=== PATIENT | female | born 1980 | race Caucasian/White ===

== ENCOUNTER 2018-04-19 14:31 | Emergency (ER) | payer SELFPAY ==
[~2018-04-19] VITALS: Ht 160 cm; Wt 58.0 kg
[2018-04-19 14:35] VITALS: BP 127/76; PULSE 80; RESP 18; Ht 160 cm; Wt 58.0 kg
--- NOTE | 2018-04-19 15:09 | ERD ---
ER Documentation Chief Complaint Chief Complaint pt bib family sent by clinic due to unable to hear FHT, approx 6 wks preg HPI 37-year-old female at 12 weeks EGA by LMP 01/25/18, presents to the emergency department, referred by [facility] for ultrasound. The patient denies vaginal bleeding, no abdominal pain, no fever or chills. ROS All systems reviewed and are negative except as per history of present illness. Allergies Allergies: Coded Allergies: No Known Allergy (Unverified , 04/19/18) PMhx/Soc Medical and Surgical Hx: pt denies Medical Hx, pt denies Surgical Hx Hx Alcohol Use: No Hx Substance Use: No Hx Tobacco Use: No Smoking Status: Never smoker Physical Exam Vitals Vital Signs Date Temp Pulse Resp B/P (MAP) Pulse Ox O2 O2 Flow FiO2 Time Delivery Rate 04/19/18 79.0 80 18 127/76 98 14:35 (93) Physical Exam Const: No acute distress Head: Atraumatic Eyes: Normal Conjunctiva ENT: Normal External Ears, Nose and Mouth. Neck: Full range of motion. No meningismus. Resp: Clear to auscultation bilaterally Cardio: Regular rate and rhythm, no murmurs Abd: Soft, non tender, non distended. Normal bowel sounds Skin: No petechiae or rashes Back: No midline or flank tenderness Ext: No cyanosis, or edema Neur: Awake and alert Psych: Normal Mood and Affect Results 24 hrs Laboratory Tests Test 04/19/18 15:13 04/19/18 15:14 04/19/18 15:17 Bedside Urine pH (LAB) 6.5 Bedside Urine Protein (LAB) Negative Bedside Urine Glucose (UA) Negative Bedside Urine Ketones (LAB) Trace Bedside Urine Blood Negative Bedside Urine Nitrite (LAB) Negative Bedside Urine Negative Leukocyte Esterase (L POC Beta HCG, Qualitative POSITIVE Beta HCG, Quantitative 22529.0 mIU/ml Patient: POLINA KOCH : 1980 Age: 37 Sex: F MR #: [id number] DOS: 04/19/18 1504 Ordering MD: CIRO OLVERA MD Location: FTE Room/Bed: PROCEDURE: US OB. CLINICAL INDICATION: female with absent cardiac activity. TECHNIQUE: Transabdominal and transvaginal sonographic evaluation of the u terus was performed. COMPARISON: None. FINDINGS: There is a single living intrauterine gestation. Eagle rump length measures 53.1 mm. Estimated gestational age based on this examination is 12 weeks +/- 1 week and 1 day. Real time examination shows cardiac activity. heart rate is 176 beats per minute. Estimated date of confinement based on this examination is 11/01/2018. IMPRESSION: 1. Single living intrauterine gestation with estimated gestational age of 12 weeks +/- 1 week and 1 day. Procedures/MDM Vital signs stable, Physical exam unremarkable. Differential diagnosis include but not limited to: UTI, threatening , incomplete versus complete , ectopic , physiologic implantation bleeding, molar . Physical examination and clinical presentation most likely consistent with viable at 12 weeks. During the ED course the patient remained hemodynamically stable and asymptomatic. Results and clinical impression discussed with patient who agrees with management. The patient is stable to be treated outpatient and will be discharged home with close monitoring and follow-up in 2 days with her primary physician. The patient was instructed regarding the outcomes and the potential co mplications like severe bleeding and . If the patient presents severe bleeding or pain, she was instructed to return to the hospital immediately. Disclaimer: Inadvertent spelling and grammatical errors are likely due to EHR/dictation software use and do not reflect on the overall quality of patient care. Also, please note that the electronic time recorded on this note does not necessarily reflect the actual time of the patient encounter. Departure Diagnosis: Primary Impression: with 12 completed weeks gestation Condition: Stable Additional Instructions: Muchas twin por [facility] para laureano servicio. Esperamos que en laureano visita a la macey de emergencia laureano problema medico haya sido solucionado y que se sienta mucho mejor. Para estar seguros que laureano mejoria sigue en proceso, le pedimos el favor de hacer lazara gal de seguimiento medico con laureano doctor primario en los proximos 2-4 acuna. Lleve con usted estos documentos y las medicinas recetadas. Si katelynn sintomas empeoran, NO SE ESPERE, por favor regrese a macey de emergencia INMEDIATAMENTE. En elva que usted no tenga un mdico de atencin primaria: Llame al mdico o clnica comunitaria de referencia que aparece abajo emerson las horas de consultorio para hacer lazara gal para que le vean. CLINICAS: [facility] [phone] [facility] [phone] [facility] [phone] [address] [place] [phone] [facility] [facility]. [place] [id number] [phone] [facility] [phone] CIRO FRANCO MD Apr 19, 2018 15:09
== END 2018-04-19 17:15 | disposition home or self-care (01) ==
LOC: FTE 14:31
DX: O36.8311 Maternal care for abnormalities of the fetal heart rate or rhythm, first trimester, fetus 1 (principal); Z3A.12 12 weeks gestation of pregnancy
CPT/HCPCS: 76801; 81003; 81025; 84702

== ENCOUNTER 2018-10-23 17:30 | Inpatient (IN) | payer MEDICAID ==
[~2018-10-23] VITALS: Ht 167.6 cm; Wt 60.0 kg
[2018-10-23] MEDS ORDERED: OXYTOCIN 30 UNITS/LR 500 ML IV SCH ×3 (18:00→22:30)
[2018-10-23] MEDS ORDERED: MISOPROSTOL 200 MCG TAB PR PRN ×2 (18:00→22:30)
[2018-10-23] MEDS ORDERED: METHYLERGONOVINE 0.2 MG INJ IM PRN ×2 (18:00→22:30)
[2018-10-23] MEDS ORDERED: LIDOCAINE 1% (MPF) 30 ML INJ INJ PRN (18:00)
[2018-10-23] MEDS ORDERED: OXYTOCIN 30 UNITS/LR 500 ML IV PRN ×2 (18:00→22:30)
[2018-10-23] MEDS ORDERED: CARBOPROST 250 MCG INJ IM PRN ×2 (18:00→22:30)
[2018-10-23 18:12] VITALS: Ht 167.6 cm; Wt 60.0 kg
--- NOTE | 2018-10-23 18:29 | HP ---
Date/Time of Note Date/Time of Note DATE: 10/23/18 TIME: 18:22 OB - History Hx of Present Free Text/Dictation 38 years old -0-0-2 with single intrauterine at 38 weeks and 5 days with a YONATAN of 11/01/2018 complaining of uterine contractions. She states good movement. She denies nausea, vomiting, shortness of breath, chest pain, headache, visual changes, vaginal bleeding or LOF. Chief Complaint: Uterine contractions Estimated Due Date: Nov 01, 2018 : 3 Para: 2 Spontaneous : 0 Therapeutic : 0 Care: Good Care Ultrasounds: Normal mid trimester US Obstetrical Complications: None Medical Complications: None Past Family/Social History * Past Medical, Surgical, Family and Obstetric Histories reviewed which is unremarkable OB Admission Exam Vital Signs Vital Signs Blood pressure 120/67,, pulse rate 68/minutes, respiratory rate 16/minutes, temperature 98.6 Physical Exam HEENT: WNL Heart: Rhythm Normal Lungs: Clear Abdomen: WNL Extremities: Normal Cervical Dilatation: 8cm Effacement: 100% Station: 0 Membranes: Intact Heart Rate: 140's Accelerations: Accelerations Present Decelerations: No Decelerations Varibility: Moderate Contractions on Admission: < 5 Minutes Apart Intensity: Firm Last 72 hours Lab Results CBC & BMP 10/23/18 17:15 OB Assessment/Plan Other plan: 38 years old -0-0-2 with single intrauterine at 38 weeks and 5 days in active labor. -FHR: No sign of metabolic acidosis- Category I -Continuous EFM, toco -CBC, blood type and screen -Analgesia options with R/B/A discussed in detail with patient -Epidural per patient request -Please see the orders -Obtain records Admission, procedures, expectations, risks and possible complications have been discussed in detail with the patient. Risk of vaginal delivery including but not limited to bleeding, infection, cervical laceration, placental retention, injury to fetus, blood transfusion, blood transfusion related infection, risk of anesthesia, adhesion, cervical laceration, episiotomy/laceration, possible delivery with risk of bleeding, infection, injury to other organs (bowel, bladder, ureter, vessels, nerves), injury to fetus, blood transfusion, blood transfusion related infection, risk of anesthesia, scar and hernia formation, needs for future , removal of uterus or any other indicated surgery discussed with the patient. She expressed understanding and repeats the risks. All of her questions were answered. She signed the informed consent. PHYSICIAN'S VERIFICATION OF INFORMED CONSENT The patient was counseled regarding the procedure, its indications, risks, potential complications and alternatives and any questions were answered. Consent was obtained. PLANNED PROCEDURE/TREATMENT: Vaginal delivery, episiotomy, repair of laceration possible delivery DAISY GONSALEZ Oct 23, 2018 18:29
--- NOTE | 2018-10-23 18:32 | LDN ---
Date/Time of Note Date/Time of Note DATE: 10/23/18 TIME: 18:29 Delivery Summary 38 years old -0-0-2 with single intrauterine at 38 weeks and 5 days delivered a viable male over intact perineum. There was a tight nuchal cord x1 which clamped and cut. Baby given to the nurse. Placenta delivered spontaneously and intact with three-vessel cord. There was no laceration. Patient tolerated procedure well. Time of delivery 17:33 Weight 3105 g Height 19 inches 8 at 1 minutes and 9 at 5 minutes EBL 150 mL Weeks of Gestation 38 weeks and 5 days Placenta Delivered: Spontaneously Meconium: none Episiotomy: No Anesthesia type: None Estimated blood loss: 150 Sponge & Needle done & correct: Yes All needle counts correct: Yes Any foreign bodies felt in the: No Delivery Information Sex Sex: male Apgars 1 Minute: 8 5 Minute: 9 10 Minute: 10 Suctioning Nose & mouth suctioned at jeffery: Yes Umbilical Cord Umbilical cord with: 3 Vessels Cord presentations: nuchal cord Nuchal cord present X: 1 Cord Blood was obtained: Yes Mother & Baby Disposition Disposition Mom & Baby to Maternity; Good: Yes DAISY GONSALEZ Oct 23, 2018 18:32
[2018-10-23 21:20] VITALS: BP 114/72; PULSE 73; RESP 18
[2018-10-23] MEDS ORDERED: SENNA/DOCUSATE NA (8.6MG/50MG) TAB PO PRN (22:30)
[2018-10-23] MEDS ORDERED: WITCH HAZEL/GLYCERIN PAD PR PRN (22:30)
[2018-10-23] MEDS ORDERED: BENZOCAINE 20% 56 ML SPRAY TOP PRN (22:30)
[2018-10-23] MEDS ORDERED: DIBUCAINE 1% 30 GM OINT TOP PRN (22:30)
[2018-10-23] MEDS ORDERED: NACL 0.9% 3 ML SYG IV SCH (22:30)
[2018-10-23] MEDS ORDERED: LANOLIN HPA 1 PKT TOP PRN (22:30)
[2018-10-23] MEDS: IBUPROFEN 600 MG TAB PO SCH (23:38)
[2018-10-24 01:14] VITALS: BP 100/62; PULSE 66; RESP 17
[2018-10-24 03:47] VITALS: BP 119/66; PULSE 67; RESP 14
[2018-10-24] MEDS: IBUPROFEN 600 MG TAB PO SCH ×3 (05:46→18:00)
[2018-10-24 08:00] VITALS: BP 98/56; PULSE 64; RESP 17
[2018-10-24 15:29] VITALS: BP 95/58; PULSE 69; RESP 18
[2018-10-24 20:00] VITALS: BP 100/54; PULSE 100; RESP 18
--- NOTE | 2018-10-24 21:50 | DELSUM ---
Delivery Summary A-C Datetime Report Generated by CPN: 10/24/2018 21:49 DELIVERY PERSONNEL Beveling And Edging Machine Operator: Duvo, Leti MATERNAL INFORMATION Delivery Anesthesia: None Medications in Delivery: pitocin Delivery QBL (ml): 90 Placenta Cultured: No Maternal Complications: None LABOR SUMMARY EDC: 11/01/2018 00:00 No. Babies in Womb: 1 Attempted: No Labor Anesthesia: None LABOR INFORMATION Reason for Induction: Not Applicable Onset of Labor: 10/23/2018 15:15 Complete Dilatation: 10/23/2018 17:32 Oxytocin: N/A Group B Beta Strep: Not Done Antibiotics # of Doses: 0 Steroids Given: None Reason Steroids Not Administered: Not Applicable MEMBRANES Membranes Rupture Method: Spontaneous Rupture of Membranes: 10/23/2018 17:32 Length of Rupture (hr): 0.02 Amniotic Fluid Color: Clear Amniotic Fluid Amount: Small Amniotic Fluid Odor: None STAGES OF LABOR Stage 1 hr: 2 Stage 1 min: 17 Stage 2 hr: 0 Stage 2 min: 1 Stage 3 hr: 0 Stage 3 min: 2 Total Time in Labor hr: 2 Total Time in Labor min: 20 VAGINAL DELIVERY Episiotomy: None Laceration Extension: N/A Laceration Type: None Laceration Repair: No Initial Vag Sponge Count: 10 Final Vag Sponge Count: 10 Initial Vag Sharps Count: 1 Final Vag Sharps Count: 1 Sponge Count Correct: Yes Sharps Count Correct: Yes BABY A INFORMATION Delivery Date/Time: 10/23/2018 17:33 Method of Delivery: Vaginal Born in Route : No : N/A Forceps: N/A Vacuum Extraction: N/A Shoulder Dystocia : N/A SHOULDER DYSTOCIA BABY A Infant Delivery Date/Time: 10/23/2018 17:33 PRESENTATION/POSITION BABY A Presentation: Cephalic Cephalic Presentation: Vertex Vertex Position: Left Occipital Anterior Breech Presentation: N/A PLACENTA INFORMATION BABY A Placenta Delivery Time : 10/23/2018 17:35 Placenta Method of Delivery: Spontaneous Placenta Status: Delivered SCORES BABY A Heart Rate 1 min: >100 bpm Resp Effort 1 min: Good Cry Reflex Irritability 1 min: Cough/Sneeze/Pulls Away Muscle Tone 1 min: Active Motion Color 1 min: Blue/Pale Resuscitation Effort 1 min: Tactile Stimulation SCORE 1 MIN: 8 Heart Rate 5 min: >100 bpm Resp Effort 5 min: Good Cry Reflex Irritability 5 min: Cough/Sneeze/Pulls Away Muscle Tone 5 min: Active Motion Color 5 min: Body Mar[place], Extremit Blue Resuscitation Effort 5 min: Tactile Stimulation SCORE 5 MIN: 9 INFORMATION BABY A Gestational Age at Delivery: 38.5 Gestational Status: Early Term- 37- 38.6 Weeks Infant Outcome : Liveborn, with signs of life Infant Condition : Stable Sex: Male IDENTIFICATION/MEDS BABY A ID Band Number: [id number] ID Band Location: Right Leg; Left Arm Sensor Applied: Yes Sensor Number: [id number] Sensor Location : Cord Clamp Vitamin K Given : Not Given Erythromycin Given: Not Given WEIGHT/LENGTH BABY A Infant Birthweight (gm): 3105 Weight (lb): 6 Infant Weight (oz): 14 Infant Length (in): 19.00 Length (cm): 48.26 CORD INFORMATION BABY A No. Cord Vessels: 3 Nuchal Cord : Around Neck x1, Tight Cord Blood Taken: Yes Suction: Mouth; Nose ASSESSMENT BABY A Complications: None Physical Findings at Delivery: Within Normal Limits Respirations: Appears Normal Plant Production Worker/ALS Called : No Infant Care By: Radha whatley Transferred To: Remains with Mother
--- NOTE | 2018-10-24 23:46 | PN ---
Date/Time of Note Date/Time of Note DATE: 10/24/18 TIME: 23:44 OB Subjective Subjective Subjective Patient denies any complaints. Vaginal bleeding decreased. Ambulating. Urin ated, breast-feeding, OB Objective Objective Objective General appearance: Alert and oriented x4 does not appear to be in any acute distress Abdomen: Soft, fundus center below the umbilicus nontender Extremities: No calf tenderness, no click no edema no cord palpable Breast: No evidence of mastitis or fissure VS - Last 72 Hours, by Label Date Temp Pulse Resp B/P (MAP) Pulse Ox O2 O2 Flow FiO2 Time Delivery Rate 10/24/18 98.3 69 18 95/58 (70) Room Air 15:29 10/24/18 98.7 64 17 98/56 (70) Room Air 08:00 10/24/18 98.5 67 14 119/66 Room Air 03:47 (83) 10/24/18 97.6 66 17 100/62 Room Air 01:14 (75) 10/23/18 98.6 73 18 114/72 Room Air 21:20 (86) Laboratory Tests Test 10/24/18 04:37 White Blood Count 14.3 H Red Blood Count 4.30 Hemoglobin 10.3 L Hematocrit 32.4 L Mean Corpuscular Volume 75.3 L Mean Corpuscular Hemoglobin 24.0 L Mean Corpuscular Hemoglobin Concent 31.8 L Red Cell Distribution Width 15.2 H Platelet Count 262 Mean Platelet Volume 9.6 Immature Granulocytes % 0.400 Neutrophils % 80.7 H Lymphocytes % 11.8 L Monocytes % 6.5 Eosinophils % 0.4 Basophils % 0.2 Nucleated Red Blood Cells % 0.0 Immature Granulocytes # 0.060 H Neutrophils # 11.5 H Lymphocytes # 1.7 Monocytes # 0.9 Eosinophils # 0.1 Basophils # 0.0 Nucleated Red Blood Cells # 0.0 OB Assessment/Plan Other Assessment: Status post day #1 Anemia, , asymptomatic Routine care Iron once a day and vitamin VICKIE EM MD Oct 24, 2018 23:46
[2018-10-25] MEDS: IBUPROFEN 600 MG TAB PO SCH ×3 (00:48→12:00)
[2018-10-25 04:00] VITALS: BP 101/58; PULSE 76; RESP 18
[2018-10-25 08:45] VITALS: BP 103/56; PULSE 67; RESP 16
[2018-10-25 17:51] VITALS: BP 112/57; PULSE 66; RESP 16
--- NOTE | 2018-10-25 18:07 | PD.PPDC ---
DERMATOPATHOLOGIST Discharge Instruction Condition [id number] Patient Condition: [id number] Good Activity/Restrictions [id number] Restrictions: [id number] No Exercising No Lifting No Driving Minimize Walking No Sexual Activity Nothing in the Vagina No [place] No Tampons, douche Follow-up Follow-up with Physician: 6, Week/Weeks Provider Information: Viktor Colón MD Return to clinic for [id number] SR. STRATEGIC SOURCING MANAGER Instructions: [id number] Fever greater than 101 Chills Worsening abdominal pain Excessive Vaginal Bleeding More than 2 pads per hour Unable to tolerate diet [id number] OB Instructions: Tipor7q Breast Tenderness Depression Blurried Vision Headache VICKIE EM MD Oct 25, 2018 18:07
--- NOTE | 2018-10-25 18:10 | QN ---
Documentation Comment Breast-feeding. Reports decreased vaginal bleeding. Denies any headache, blurred vision, epigastric pain or right upper quadrant pain. Reports her breast milk is not adequate and has been using supplements. Physical examination: General appears alert and oriented x4 does not appear to be in any acute distress Abdomen: Soft, fundus palpable 3 cm below the umbilicus and nontender and firm Breast: No evidence of mastitis or fissure, breast fullness noted Extremities: No calf tenderness, no click no edema no cord palpable Coagulation Test 10/23/18 17:15 INR International Normalized Ratio 0.89 Prothrombin Time 12.2 Sec (11.9-14.9) Assessment Status post day #2 Doing well Mild leukocytosis, reactive, asymptomatic no evidence of infection or endometritis Patient is stable for discharge. She meet the criteria for discharge. Discussed regarding follow-up in 6 weeks with primary OB office or sooner as needed Discharge instruction precaution provided by RN and by myself VICKIE EM MD Oct 25, 2018 18:10
--- NOTE | 2018-10-25 18:11 | DS ---
Date/Time of Note Date/Time of Note DATE: 10/25/18 TIME: 18:10 Discharge Summary Admission/Discharge Info Admit Date/Time Oct 23, 2018 at 17:30 Discharge Date/Time 10/25/2018 Discharge Diagnosis Status post Mild leukocytosis, reactive, asymptomatic Patient Condition: Good Consults None Procedures Hx of Present Illness 38 years old -0-0-2 with single intrauterine at 38 weeks and 5 days with a YONATAN of 11/01/2018 presented in labor with complaint of uterine contractions. She was noted to be in active labor. She progressed normally and delivered a viable male over intact peritoneum. Tight nuchal cord x1 noted. Placenta delivered spontaneously intact three-vessel. No laceration. Baby 8 and 9. EBL 150 cc. Postoperatively she did well. She only had mild leukocytosis and likely was reactive secondary to labor. She was asymptomatic. No evidence of endometritis or source of infection noted. She was advised To have a follow-up in 6 weeks or sooner with primary OB office. Precaution was given to be seen In the emergency if she has any fever or chills abdominal pain tenderness breast tenderness breast pain or any other concerns including headache, blurred vision, epigastric pain right upper quadrant pain, nausea vomiting diarrhea. Hospital Course Uncomplicated Primary Care Provider Care Physician No Primary Time spent on discharge: > 30 minutes VICKIE EM MD Oct 25, 2018 18:11
--- NOTE | 2018-10-28 12:05 | NSTRPT ---
NST Information Datetime Report Generated by CPN: 10/28/2018 12:05 Datetime: 10/22/2018 14:38 NST Information EGA: 38.4 Test Number: 3 Time on Monitor: 10/22/2018 15:05 Time off Monitor: 10/22/2018 15:33 NST Duration (Min): 28 Reason for NST: Other Reason for NST Other: Advanced Maternal Age Test and Monitor Explained: Monitor Explained; Test Explained; Verbalized Understanding; Breastfeed ing Info Given Pulse: 93 Resp: 18 SBP: 94 DBP: 59 Test Evaluation NST Interventions: Acoustic Stimulation NST Interventions Other: 1513 FAS followed by accel to 160 Patient States Movement: Present Contraction Frequency: x1/60/mild/pain level 0 FHR Baseline : 145 Variability: Moderate 6-25bpm Accelerations: 15X15 Decelerations: None FHR Category: Category I NST Results: Reactive Comments: To u/s AV 13.9 CM CEPHALIC Electronically Signed By E-Signature: with User ID: [id number] Datetime: 10/18/2018 14:43 NST Information EGA: 38.0 Test Number: 2 Time on Monitor: 10/18/2018 15:23 Time off Monitor: 10/18/2018 15:48 NST Duration (Min): 25 Reason for NST: Other Reason for NST Other: Advanced Maternal Age Test and Monitor Explained: Monitor Explained; Test Explained; Verbalized Understanding Pulse: 83 Resp: 18 SBP: 101 DBP: 66 Test Evaluation NST Interventions: None Patient States Movement: Present Contraction Frequency: NONE FHR Baseline : 135 Variability: Moderate 6-25bpm Accelerations: 15X15 Decelerations: None FHR Category: Category I NST Results: Reactive Comments: To u/s AV 15.1 CM CEPHALIC Electronically Signed By E-Signature: with User ID: [id number] Datetime: 10/15/2018 13:50 NST Information EGA: 37.4 Datetime: 10/15/2018 13:45 NST Duration (Min): 32
== END 2018-10-25 19:04 | disposition home or self-care (01) | DRG 788 ==
LOC: L-D 17:30 → MS1 21:47
PROVIDERS: ADMIT Obstetrics & Gynecology; ATTEND Obstetrics & Gynecology
PROC: 10D00Z1 Extraction of Products of Conception, Low, Open Approach (ICD-10-PCS; principal; 2018-10-23)
DX: O69.1XX0 Labor and delivery complicated by cord around neck, with compression, not applicable or unspecified (principal); Z3A.38 38 weeks gestation of pregnancy; Z37.0 Single live birth
CPT/HCPCS: 85025; 85610; 85730; 86592; 86703; 86762; 86850; 86900; 86901; 87340; J2590